=== PATIENT | female | born 1990 | race Caucasian/White ===

== ENCOUNTER 2019-09-19 11:46 | Outpatient (RCR) | payer OTHER, SELFPAY ==
[2019-09-19 13:32] LABS: Hematocrit 35.4 % (37.0-47.0); Hemoglobin 11.4 g/dL (12.0-15.0)
[2019-09-19 13:48] LABS: Glucose 1 Hour PP 50gm Dose 110 mg/dL
[2019-09-19 14:24] LABS: Vitamin D 25 Hydroxy 47.5 ng/mL
[2019-09-19 14:29] LABS: HIV 1/2 Ab P24 Ag Result Negative (Negative)
[2019-09-21] MEDS: RHO(D) IMMUNE GLOBULIN 300 MCG SYRINGE IM (16:29)
== END 2019-12-18 23:59 | disposition home or self-care (01) ==
LOC: ANHLAB 11:46
PROVIDERS: PCP Obstetrics & Gynecology; Visit Provider Obstetrics & Gynecology
DX: Z36.89 Encounter for other specified antenatal screening (principal); Z29.13 Encounter for prophylactic Rho(D) immune globulin; O36.0920 Maternal care for other rhesus isoimmunization, second trimester, not applicable or unspecified; Z3A.00 Weeks of gestation of pregnancy not specified
CPT/HCPCS: 36415; 82306; 82947; 85014; 85018; 86703; 90384; 96372; G0432; J2790

== ENCOUNTER 2019-10-25 00:30 | Observation (INO) | payer OTHER, SELFPAY ==
--- NOTE | 2019-10-25 02:29 | OBADM ---
This patient, Bharath Garvin, admitted to the OB room Labor/Delivery/Recovery 103 for observation. Patient/family oriented to hospital policies and general routines including ID bracelet, bed and alarms, visiting hours, pain management, procedures, bathroom and other care routines, personal items, smoking policy, room service/diet, and visiting hours. Patient/Family are encouraged to report perceived risks to care and to ask questions if they do not understand what they are told or what they should do.
--- NOTE | 2019-10-28 10:55 | PM.OBTRLD ---
OB - Triage/Final Diagnosis Final Diagnosis (1) No leakage of amniotic fluid into vagina: Code(s): Z03.71 - Encounter for suspected problem with amniotic cavity and membrane ruled out Status: Acute
--- NOTE | 2019-10-31 07:57 | PM.OBTRLD ---
OB - Triage/Final Diagnosis Visit Information Comments/Additional reasons for admission: leaking vaginal fluid
== END 2019-10-25 01:15 | disposition home or self-care (01) ==
PROVIDERS: Admitting Provider Obstetrics & Gynecology Gynecology; Visit Provider Obstetrics & Gynecology Gynecology
DX: O26.893 Other specified pregnancy related conditions, third trimester (principal); N89.8 Other specified noninflammatory disorders of vagina; Z3A.35 35 weeks gestation of pregnancy
CPT/HCPCS: G0378; G0379

== ENCOUNTER 2019-11-01 14:35 | Observation (INO) | payer OTHER, SELFPAY ==
--- NOTE | 2019-11-01 14:35 | OBADM ---
This patient, Bharath Garvin, admitted to the OB room OB Post 115 for observation. Patient/family oriented to hospital policies and general routines including ID bracelet, bed and alarms, visiting hours, pain management, procedures, bathroom and other care routines, personal items, smoking policy, room service/diet, and visiting hours. Patient/Family are encouraged to report perceived risks to care and to ask questions if they do not understand what they are told or what they should do.
[2019-11-01 15:01] VITALS: BP 98/66; PULSE 99
[2019-11-01 15:15] VITALS: BP 101/66; PULSE 101
[2019-11-01 15:31] VITALS: BP 99/65; PULSE 101
[2019-11-01 15:46] VITALS: BP 105/68; PULSE 102
[2019-11-01 15:56] LABS: Add Urine Microscopic? NO; Appearance Urine Clear (Clear); Bilirubin Urine Negative (Negative); Blood Urine Negative (Negative); Color Urine Yellow (Yellow); Glucose Urine UA Negative (Negative); Ketones Urine Negative (Negative); Leukocyte Esterase Ur Negative LEU/UL (NEGATIVE); Nitrate Urine Negative (Negative); Protein Urine Negative (Negative); Specific Grav Ur 1.016 (1.001-1.035); Urobilinogen Urine Negative mg/dL (<2.0)
[2019-11-01 16:01] VITALS: BP 96/63; PULSE 93
[2019-11-01 16:16] VITALS: BP 99/63; PULSE 92
--- NOTE | 2019-11-22 09:37 | PM.OBTRLD ---
OB - Triage/Final Diagnosis Visit Information Date of evaluation: 11/01/19 Comments/Additional reasons for admission: constipation and back pain Evaluation Laboratory results: Laboratory Tests 11/01/19 15:46 Urine Color Yellow Urine Appearance Clear Urine pH 6.0 Ur Specific [place] 1.016 Urine Protein Negative Urine Glucose (UA) Negative Urine Ketones Negative Ur Blood (Man) Negative Urine Nitrate Negative Urine Bilirubin Negative Urine Urobilinogen Negative Ur Leukocyte Esterase Negative
== END 2019-11-01 17:10 | disposition home or self-care (01) ==
PROVIDERS: Admitting Provider Obstetrics & Gynecology; Visit Provider Obstetrics & Gynecology
DX: O99.89 Other specified diseases and conditions complicating pregnancy, childbirth and the puerperium (principal); K59.00 Constipation, unspecified; M54.9 Dorsalgia, unspecified; Z3A.36 36 weeks gestation of pregnancy
CPT/HCPCS: 81003; 87086; G0378; G0379

== ENCOUNTER 2019-11-21 04:58 | Inpatient (IN) | payer OTHER, SELFPAY ==
[2019-11-21] VITALS (85 sets, daily range): BP systolic 79–132; BP diastolic 51–85; PULSE 67–122; RESP 16–18; TEMP 36.6–37; O2SAT 96–100; BMI 22.4
--- NOTE | 2019-11-21 05:26 | LDADM ---
This patient, Bharath Garvin, was admitted to Labor/Delivery/Recovery 106 on 11/21/19 at 04:58. Plans for labor, pain management and were discussed with patient. Patient/family oriented to hospital policies and general routines including ID bracelet, bed and alarms, visiting hours, pain management, procedures, bathroom and other care routines, personal items, smoking policy, room service/diet and guest tray routines, infant security routines, and visiting hours. Patient/Family are encouraged to report perceived risks to care and to ask questions if they do not understand what they are told or what they should do. See OBIX for further documentation.
[2019-11-21 05:28] LABS: Basophils Absolute Auto 0.1 K/mm3 (0.0-0.1); Basophils Percent Auto 0.6 % (0.2-1.2); Eosinophils Absolute Auto 0.1 K/mm3 (0-0.3); Eosinophils Percent Auto 1.3 % (0-4.4); Hematocrit 34.2 % (37.0-47.0); Hemoglobin 10.6 g/dL (12.0-15.0); Immature Granulocyte Absolute 0.07 K/mm3 (0.00-0.031); Immature Granulocyte Percent A 0.7 % (0-0.5); Immature Platelet Fraction Pct 17.9 % (0.9-11.2); Lymphocytes Absolute Auto 2.19 K/mm3 (0.9-3.2); Lymphocytes Percent Auto 21.6 % (18.3-44.2); Mean Corpuscular Volume 77.4 fl (80-100); Mean Platelet Volume 13.2 fl (7.4-10.4); Monocytes Absolute Auto 0.5 K/mm3 (0.1-0.6); Monocytes Percent Auto 4.9 % (2.6-8.5); Neutrophils Absolute Auto 7.2 K/mm3 (1.3-6.7); Neutrophils Percent Auto 70.9 % (45.5-73.1); Platelet Count Result 202 k/mm3 (150-375); Red Blood Count 4.42 M/mm3 (4.2-5.4); Red Cell Distribution Width 14.5 % (11.5-14.5); White Blood Count 10.2 K/mm3 (4.5-10.0)
[2019-11-21] MEDS: OXYTOCIN 30 UNITS/NS 500 ML 30 UNITS/500 ML BAG IV CONT (05:47)
[2019-11-21] MEDS: LACTATED RINGERS 1,000 ML 125 ML IV CONT ×3 (05:47→08:47)
--- NOTE | 2019-11-21 07:33 | WPDANESEPP ---
Anes - Eval Pre Procedure Procedure: Labor epidural Date/Time: 11/21/19 07:33 Surgeon: Osorio Bowles M.D. Preop Diagnosis: Labor pain Pre Op Diagnosis: induction of labor Patient Data Age: 29 Gender: F Height: 1.69 m Weight: 64 kg Last Vital Signs Pulse 93 11/21/19 07:30 BP 79/64 L 11/21/19 07:30 Pulse Ox 98 11/21/19 07:32 Allergies Allergy/AdvReac Type Severity Reaction Status Date / Time nitrofurantoin AdvReac Vomiting Verified 11/06/19 14:49 [From Macrobid] Home Medications Medication Instructions Recorded Confirmed Type PNV cmb#95-ferrous fumarate-FA 1 tablet PO DAILY 10/25/19 10/25/19 History [] ergocalciferol (vitamin D2) 50,000 unit PO WEEKLY 10/25/19 10/25/19 History ondansetron HCl 4 mg PO Q6-8H PRN 10/25/19 10/25/19 History esomeprazole magnesium [Nexium 20 mg PO DAILY 11/06/19 11/06/19 History 24HR] Laboratory Tests 11/21/19 11/21/19 11/21/19 05:17 05:17 05:17 WBC 10.2 K/mm3 H K/mm3 (4.5-10.0) RBC 4.42 M/mm3 M/mm3 (4.2-5.4) Hgb 10.6 g/dL L g/dL (12.0-15.0) Hct 34.2 % L % (37.0-47.0) MCV 77.4 fl L fl (80-100) MCH 24.0 pg L pg (26-34) MCHC 31.0 g/dl L g/dl (32-36) RDW 14.5 % % (11.5-14.5) Plt Count 202 k/mm3 k/mm3 (150-375) MPV 13.2 fl H fl (7.4-10.4) Immature Gran % (Auto) 0.7 % H % (0-0.5) Neut % (Auto) 70.9 % % (45.5-73.1) Lymph % (Auto) 21.6 % % (18.3-44.2) [place] % (Auto) 4.9 % % (2.6-8.5) Eos % (Auto) 1.3 % % (0-4.4) Baso % (Auto) 0.6 % % (0.2-1.2) Lymph # (Auto) 2.19 K/mm3 K/mm3 (0.9-3.2) [place] # (Auto) 0.5 K/mm3 K/mm3 (0.1-0.6) Eos # (Auto) 0.1 K/mm3 K/mm3 (0-0.3) Baso # (Auto) 0.1 K/mm3 K/mm3 (0.0-0.1) Abs Immat Gran (auto) 0.07 K/mm3 H K/mm3 (0.00-0.031) Absolute Neuts (auto) 7.2 K/mm3 H K/mm3 (1.3-6.7) Absolute Nucleated RBC 0.0 K/mm3 K/mm3 (0.0-0.012) Nucleated RBC % 0.0 % % (0.0-0.2) % Immature Plt Fraction 17.9 % H % (0.9-11.2) RPR Pending Blood Type O Negative Antibody Screen Positive Antibody Identification Pending Antigen Identification Pending RACHEL, IgG Interpret Pending RACHEL, Poly Interpret Pending RACHEL, Complement Interp Pending Patient hx anesthesia problems: none Family hx anesthesia problems: none [facility] Family History Family History (Updated 11/06/19 @ 14:56 by Ely Gaxiola RN) Sibling Club foot Father Degenerative disc disease Daughter Genetic disorder Social History Social History Smoking status: Never smoker Second hand tobacco smoke exposure: No Substance use: never Spiritual care concerns: No Exam Day of Procedure 11/21/19 07:33
--- NOTE | 2019-11-21 09:05 | WPDOBADMIT ---
Obstetrics - Admit Note Admission Note: record reviewed. No pertinent additions to the history and/or any subsequent changes in the physical findings that are not consistent with the expected course of the were found. AROM Thick meconium fluid /-1 Additions to the history and/or subsequent changes in the physical findings follow. None.
[2019-11-21 09:29] LABS: Rapid Plasma Reagin Non-Reactive (NonReactive)
[2019-11-21] MEDS: ONDANSETRON INJ 4 MG/2 ML VIAL IV PUSH (10:35)
--- NOTE | 2019-11-21 11:16 | P.PCNOB_ITS ---
OB - Delivery Note Procedure events: Labor Induction Intrapartal events: None Induction method: AROM and per pitocin protocol Delivery monitor: external FHT and external uterine Route of delivery: Laceration description: Perineal - 2nd Degree Delivery repair: vicryl Specimen: No Estimated blood loss (mL): 50 [place] Baby Date of : 11/21/19 Time of : 11:03 Weeks of gestation at delivery: 39 gender: Male Weight (pounds): 7 Weight (ounces): 13 presentation: vertex position: Left Occiput Anterior Placenta delivery description: Spontaneous cord vessel description: 3 Vessels score one minute: 9 score five minutes: 9
--- NOTE | 2019-11-21 11:18 | P.DS_ITS ---
DS: Diagnosis Admitting Diagnosis Admitting Diagnosis: labor induction OB - DS: Summary OB Procedures : None OB Procedures Intrapartum: Spontaneous Vag Delivery OB Procedures: : None Time Spent with Patient Time attestation: Total time spent providing and/or coordinating discharge services: Exam Const: General: comfortable GI: GI Palp: Yes Soft to palpation : General: Yes bladder normal to palpation DS: Data Data Completed and Pending Labs on day of discharge: Labs from last 24 hours 11/21/19 11/21/19 11/21/19 05:17 05:17 05:17 WBC 10.2 H RBC 4.42 Hgb 10.6 L Hct 34.2 L MCV 77.4 L MCH 24.0 L MCHC 31.0 L RDW 14.5 Plt Count 202 MPV 13.2 H Immature Gran % (Auto) 0.7 H Neut % (Auto) 70.9 Lymph % (Auto) 21.6 [place] % (Auto) 4.9 Eos % (Auto) 1.3 Baso % (Auto) 0.6 Lymph # (Auto) 2.19 [place] # (Auto) 0.5 Eos # (Auto) 0.1 Baso # (Auto) 0.1 Abs Immat Gran (auto) 0.07 H Absolute Neuts (auto) 7.2 H Absolute Nucleated RBC 0.0 Nucleated RBC % 0.0 % Immature Plt Fraction 17.9 H RPR Non-reactive Blood Type O Negative Antibody Screen Positive Antibody Identification Passive Due to RH Imm Glob Antigen Identification Cancelled RACHEL, IgG Interpret Not Performed RACHEL, Poly Interpret Negative RACHEL, Complement Interp Not Performed Discharge Plan Discharge Attending physician on discharge: Osorio Bowles Discharging Clinician: Osorio Bowles Patient Disposition: Home, Self-Care Activity: may shower and pelvic rest Diet: as tolerated Patient Instructions: Antibiotic Form Stand Alone Forms: General Discharge Information Follow-up/Referrals: Osorio Bowles MD [Physician] - Discharge Medications: No Action ondansetron HCl 4 mg tablet 4 mg PO Q6-8H PRN (Reason: Nausea) RF: 0 ergocalciferol (vitamin D2) 1,250 mcg (50,000 unit) capsule 50,000 unit PO WEEKLY RF: 0 PNV cmb#95-ferrous fumarate-FA [] 28 mg iron- 800 mcg tablet 1 tablet PO DAILY RF: 0 esomeprazole magnesium [Nexium 24HR] 20 mg Capsule,Delayed Release(Dr/Ec) 20 mg PO DAILY RF: 0 Date of admission: 11/21/19 04:58 Primary Care Provider: UNKNOWN,DOCTOR Admitting Provider: Osorio Bowles Attending physician on admission: Osorio Bowles
[2019-11-21] MEDS: OXYTOCIN 30 UNITS/NS 500 ML 30 UNITS/500 ML BAG 125 UNITS IV CONT (11:35)
[2019-11-21] MEDS: BENZOCAINE 20% AER SPR (*SP) 56 GM CAN 1 SPRAY TOPICAL (13:06)
[2019-11-21] MEDS: IBUPROFEN 600 MG TABLET PO ×2 (13:06→18:57)
[2019-11-21] MEDS: WITCH HAZEL 40 PADS 1 PAD TOPICAL (13:06)
--- NOTE | 2019-11-21 15:17 | PC.NURSE ---
Patient transferred to post room #285 per wheelchair. Support person present. Oriented to unit, room, information board, rooming in, admission packet and security measures. Patient verbalizes understanding.
[2019-11-22] MEDS: IBUPROFEN 600 MG TABLET PO ×2 (01:44→09:01)
[2019-11-22 05:29] LABS: Hemoglobin 9.1 g/dL (12.0-15.0)
[2019-11-22 08:00] VITALS: BP 95/56; PULSE 85; RESP 18; TEMP 36.8; O2SAT 100
[2019-11-22 08:30] VITALS: PULSE 85; RESP 18; O2SAT 100
[2019-11-22] MEDS: POLYSACCHARIDE IRON COMPLEX 150 MG CAPSULE PO (08:50)
[2019-11-22] MEDS: DOCUSATE SODIUM 100 MG CAPSULE PO (08:50)
--- NOTE | 2019-11-22 12:16 | PM.OBPNVD ---
OB - PN: Subj Subjective Date/time seen: 11/22/19 12:16 Patient comments: no complaints and pain well controlled baby status: bottle feeding well OB - PN: Obj Data Labs CBC & Chem 7: 11/22/19 04:31 Labs: Laboratory Results - last 24 hr 11/22/19 11/22/19 04:31 04:31 Hgb 9.1 L Hct 30.0 L Blood Type O Negative Antibody Screen Positive Antibody Identification Passive Due to RH Imm Glob Antigen Identification Cancelled RACHEL, IgG Interpret Cancelled RACHEL, Poly Interpret Cancelled RACHEL, Complement Interp Cancelled Screen Negative Baby's Blood Type O pos Baby's RACHEL Positive Doses of RhIg Required 1 OB - PN A/P Assessment and Plan (1) (normal spontaneous vaginal delivery): Code(s): O80 - Encounter for full-term uncomplicated delivery Status: Acute Assessment and Plan: doing well d/c home Time Spent With Patient Time: Total time spent is greater than 50% in coordination of care (as documented) at patient's floor/unit and/or counseling patient: Exam Cardio: Rate: regular rate GI: Auscultation: normal bowel sounds
--- NOTE | 2019-11-22 13:55 | WPDANLDPN2 ---
Anes-Prog Note L&D Date/Time: 11/22/19 13:55 Comfortable throughout: labor and delivery Neuraxial method: epidural Epidural/Spinal procedure site: clean & non-tender Neuro status: Neuro function grossly intact. Cardiovascular status: normal Respiratory status: normal Airway patency: baseline Mental status: baseline Post-Op hydration status: normal Vital Signs: Last Vital Signs Temp 36.8 C 11/22/19 08:00 Pulse 85 11/22/19 08:30 Resp 18 11/22/19 08:30 BP 95/56 L 11/22/19 08:00 Pulse Ox 100 11/22/19 08:30 Post-procedural complaints: none Patient feedback: Patient satisfied with anesthetic care.
[2019-11-22] MEDS: RHO(D) IMMUNE GLOBULIN 300 MCG SYRINGE IM (13:58)
[2019-11-23 08:31] VITALS: BP 109/73; PULSE 100; RESP 18; TEMP 36.7
== END 2019-11-22 14:40 | disposition home or self-care (01) | DRG 560 ==
LOC: ANHLDR 11:20 → ANHOB2 14:19
PROVIDERS: Admitting Provider Obstetrics & Gynecology; Visit Provider Obstetrics & Gynecology
DX: O77.0 Labor and delivery complicated by meconium in amniotic fluid (principal); Z37.0 Single live birth; Z3A.39 39 weeks gestation of pregnancy; O70.1 Second degree perineal laceration during delivery
CPT/HCPCS: 36415; 85014; 85018; 85025; 85055; 86592; 86850; 86880; 86900; 86901; 86902; 90384; A9270; J2405; J2590; J2790; J2795; J7120